=== PATIENT | male | born 1960 | race Caucasian/White ===

== ENCOUNTER 2021-04-06 13:36 | Emergency (ER) | payer OTHER ==
[2021-04-06 15:39] LABS: Bilirubin Neg (Negative); Blood, Urine 250 (Negative); Clarity Slightly Cloudy (Clear); Glucose, Urine (Dipstick) Normal (Negative); Ketone, Urine 15 mg/dL (Negative); Leukocyte 100 (Negative); Nitrite Negative (Negative); Protein, Urine (Dipstick) 100 mg/dl (Neg-Trace); Specific Gravity, Urine 1.015 (1.002-1.036)
[2021-04-06 15:44] LABS: Bacteria/HPF 2+ HPF (None Seen)
[2021-04-06] MEDS ORDERED: Ibuprofen 200 MG TAB ONE (15:47)
[2021-04-06] MEDS ORDERED: Acetaminophen 500 MG TAB ONE (15:47)
== END 2021-04-06 15:46 ==
LOC: CSHERS 13:36 → EEVIPCON 13:36 → CSHERS 15:46
DX: N45.2 Orchitis (principal); N40.1 Benign prostatic hyperplasia with lower urinary tract symptoms; N13.8 Other obstructive and reflux uropathy; N39.0 Urinary tract infection, site not specified; I11.0 Hypertensive heart disease with heart failure; I50.9 Heart failure, unspecified; I25.10 Atherosclerotic heart disease of native coronary artery without angina pectoris; E11.40 Type 2 diabetes mellitus with diabetic neuropathy, unspecified; E78.5 Hyperlipidemia, unspecified; I25.2 Old myocardial infarction; Z85.71 Personal history of Hodgkin lymphoma; G47.30 Sleep apnea, unspecified; Z79.4 Long term (current) use of insulin; Z79.82 Long term (current) use of aspirin; Z87.891 Personal history of nicotine dependence; Z79.899 Other long term (current) drug therapy
CPT/HCPCS: 76870; 81003; 81015; 87086; 93976

== ENCOUNTER 2021-04-12 13:36 | Emergency (ER) | payer OTHER ==
[2021-04-12 14:27] LABS: #Basophils 0.1 10x3/uL (0.0-0.2); #Eosinphils 0.1 10x3/uL (0.0-0.5); #Monocytes 0.7 10x3/uL (0.0-1.1); #Neutrophils 7.3 10x3/uL (1.5-8.4); %Basophils 0.6 % (0.0-2.0); %Lymphocytes 14.4 % (18.0-47.0); %Neutrophils 75.1 % (40.0-75.0); Hemoglobin 10.6 g/dL (13.5-17.5); Mean Corpuscular HGB CONC 30.8 g/dL (32.0-36.0); Mean Corpuscular Hemoglobin 24.9 pg (27.0-33.0); Mean Corpuscular Volume 80.9 fl (81.2-95.1); Mean Platelet Volume 10.6 fl (7.4-10.4); Platelet Count 321 10x3/uL (150-450); RBC Distribution Width 15.6 % (11.5-14.5); Red Blood Cell (RBC) Count 4.25 10x6/uL (4.32-5.72); White Blood Cell (WBC) Count 9.8 10x3/uL (3.5-10.5)
[2021-04-12] MEDS ORDERED: Piperacillin/Tazobactam 3.375 GM VIAL ONE (14:37)
[2021-04-12] MEDS ORDERED: Ondansetron PF 4 MG/2 ML Vial ONE (14:37)
[2021-04-12] MEDS ORDERED: Morphine 4 MG/ML VIAL ONE ×2 (14:37→18:31)
[2021-04-12 14:42] LABS: ALT (SGPT) 29 U/L (8-55); AST (SGOT) 22 U/L (5-34); Albumin 3.7 g/dL (3.4-4.8); Alkaline Phosphatase 120 U/L (40-110); Anion Gap 14 mmol/L (10-20); BUN (Urea Nitrogen) 11 mg/dL (8.4-25.7); Bilirubin, Total 0.5 mg/dL (0.2-1.2); CK (CPK) 72 U/L (30-200); Calc. Creatinine Clearance 0 mL/min (70-130); Calcium 9.3 mg/dL (7.8-10.44); Carbon Dioxide 30 mmol/L (23-31); Chloride 99 mmol/L (98-107); Globulin 3.6 g/dL (2.4-3.5); Glucose 226 mg/dL (80-115); Potassium 4.4 mmol/L (3.5-5.1); Protein, Total 7.3 g/dL (5.8-8.1); Sodium 139 mmol/L (136-145)
[2021-04-12 15:16] LABS: SARS-CoV-2 NAA Rapid Test Not Detected (NotDetected)
== END 2021-04-12 22:10 | disposition short-term general hospital (02) ==
LOC: EEVIPCON 13:36 → CSHERS 13:36
DX: N49.2 Inflammatory disorders of scrotum (principal); E11.40 Type 2 diabetes mellitus with diabetic neuropathy, unspecified; E78.5 Hyperlipidemia, unspecified; I11.0 Hypertensive heart disease with heart failure; I50.9 Heart failure, unspecified; I25.10 Atherosclerotic heart disease of native coronary artery without angina pectoris; I25.2 Old myocardial infarction; N40.0 Benign prostatic hyperplasia without lower urinary tract symptoms; Z87.891 Personal history of nicotine dependence; Z79.4 Long term (current) use of insulin; Z20.822 Contact with and (suspected) exposure to COVID-19
CPT/HCPCS: 72193; 80053; 82550; 83605; 85025; 86140; 87040; 96365; 96375; 96376; J2270; J2405; J2543; J3490; U0002

== ENCOUNTER 2021-09-23 21:59 | Inpatient (IN) | payer OTHER ==
[2021-09-23 22:25] LABS: #Eosinphils 0.1 10x3/uL (0.0-0.5); #Monocytes 0.7 10x3/uL (0.0-1.1); #Neutrophils 5.8 10x3/uL (1.5-8.4); %Basophils 0.5 % (0.0-2.0); %Eosinophils 0.7 % (0.0-6.0); %Lymphocytes 16.7 % (18.0-47.0); %Neutrophils 72.5 % (40.0-75.0); Hemoglobin 9.8 g/dL (13.5-17.5); Mean Corpuscular HGB CONC 32.5 g/dL (32.0-36.0); Mean Corpuscular Hemoglobin 25.1 pg (27.0-33.0); Mean Corpuscular Volume 77.4 fl (81.2-95.1); Mean Platelet Volume 10.5 fl (7.4-10.4); Platelet Count 231 10x3/uL (150-450); RBC Distribution Width 17.2 % (11.5-14.5)
[2021-09-23] MEDS ORDERED: Furosemide 100 MG/10 ML VIAL ONE (22:33)
[2021-09-23] MEDS ORDERED: Furosemide 40 MG/4 ML VIAL ONE (22:33)
[2021-09-23 22:36] LABS: ALT (SGPT) 24 U/L (8-55); AST (SGOT) 21 U/L (5-34); Albumin 3.9 g/dL (3.4-4.8); Alkaline Phosphatase 113 U/L (40-110); Anion Gap 13 mmol/L (10-20); BUN (Urea Nitrogen) 17 mg/dL (8.4-25.7); Bilirubin, Total 0.4 mg/dL (0.2-1.2); Calc. Creatinine Clearance 0 mL/min (70-130); Carbon Dioxide 26 mmol/L (23-31); Chloride 99 mmol/L (98-107); Estimated GFR 72; Globulin 2.6 g/dL (2.4-3.5); Glucose 230 mg/dL (80-115); Potassium 4.3 mmol/L (3.5-5.1); Protein, Total 6.5 g/dL (5.8-8.1); Sodium 134 mmol/L (136-145)
[2021-09-23 22:58] LABS: SARS-CoV-2 NAA Rapid Test Not Detected (NotDetected)
[2021-09-24] MEDS ORDERED: Nitroglycerin 0.4 MG TAB (25 Tab Bottle) SL PRN (03:16)
[2021-09-24] MEDS: Nitroglycerin 2% Ointment 1 INCH/1 GM Packet TOP SCH ×4 (03:57→22:44)
[2021-09-24 04:34] LABS: Troponin I 0.034 ng/mL (< 0.028)
[2021-09-24 04:49] LABS: Ferritin 48.6 ng/mL (22-322); Thyroid Stimulating Hormone 2.5574 uIU/mL (0.35-4.94)
[2021-09-24] MEDS: Furosemide 40 MG/4 ML VIAL SLOW IVP SCH ×2 (06:28→14:40)
[2021-09-24 08:14] LABS: #Eosinphils 0.1 10x3/uL (0.0-0.5); #Monocytes 0.8 10x3/uL (0.0-1.1); #Neutrophils 4.9 10x3/uL (1.5-8.4); %Basophils 0.6 % (0.0-2.0); %Eosinophils 1.5 % (0.0-6.0); %Lymphocytes 16.9 % (18.0-47.0); %Monocytes 10.8 % (0.0-10.0); %Neutrophils 69.5 % (40.0-75.0); Hemoglobin 10.2 g/dL (13.5-17.5); Mean Corpuscular HGB CONC 31.5 g/dL (32.0-36.0); Mean Corpuscular Hemoglobin 24.8 pg (27.0-33.0); Mean Corpuscular Volume 78.8 fl (81.2-95.1); Mean Platelet Volume 10.5 fl (7.4-10.4); Platelet Count 223 10x3/uL (150-450); RBC Distribution Width 17.1 % (11.5-14.5); Red Blood Cell (RBC) Count 4.11 10x6/uL (4.32-5.72); White Blood Cell (WBC) Count 7.1 10x3/uL (3.5-10.5)
[2021-09-24 08:29] LABS: Anion Gap 14 mmol/L (10-20); BUN (Urea Nitrogen) 17 mg/dL (8.4-25.7); Calc. Creatinine Clearance 142 mL/min (70-130); Calcium 9.4 mg/dL (7.8-10.44); Carbon Dioxide 26 mmol/L (23-31); Chloride 103 mmol/L (98-107); Estimated GFR 74; Glucose 173 mg/dL (80-115); Potassium 3.9 mmol/L (3.5-5.1); Sodium 139 mmol/L (136-145)
[2021-09-24] MEDS: DULoxetine 30 MG CAP PO SCH (09:16)
[2021-09-24] MEDS: Enoxaparin Sodium 40 MG/0.4 ML SYRINGE SC SCH (09:21)
[2021-09-24] MEDS: Clopidogrel Bisulfate 75 MG TAB PO SCH (09:21)
[2021-09-24] MEDS: Aspirin 81 mg Enteric Coated Tablet PO SCH (09:21)
[2021-09-24] MEDS: Empagliflozin 10 MG TAB PO SCH (09:21)
[2021-09-24] MEDS: hydrALAZINE 25 MG TAB PO SCH ×3 (09:22→21:52)
[2021-09-24] MEDS: Lisinopril 20 MG TAB PO SCH (09:22)
[2021-09-24] MEDS: Insulin Regular 300 UNITS/3 ML VIAL SC SCH ×3 (09:23→17:09)
[2021-09-24] MEDS: Carvedilol 6.25 MG TAB PO SCH ×2 (09:23→17:09)
[2021-09-24] MEDS: Potassium Chloride 20 MEQ TAB PO SCH (09:23)
[2021-09-24] MEDS: NPH, Human Insulin Isophane 300 UNIT/3 ML VIAL SC SCH ×2 (09:25→16:54)
[2021-09-24] MEDS: metFORMIN 500 MG TAB PO SCH ×2 (09:26→17:09)
[2021-09-24 11:02] LABS: Troponin I 0.029 ng/mL (< 0.028)
[2021-09-24] MEDS: Mometasone/Formoterol 60 PUFF AER INH SCH ×2 (12:01→19:55)
[2021-09-24] MEDS: Terazosin HCl 5 MG CAP PO SCH (21:51)
[2021-09-24] MEDS: Atorvastatin Calcium 40 MG TAB PO SCH (21:51)
[2021-09-24] MEDS: cefTRIAXone\\ROCEPHIN 2 GM in Sodium Chloride 0.9% 100 ML IVPB SCH (21:53)
[2021-09-25 04:43] LABS: Anion Gap 16 mmol/L (10-20); BUN (Urea Nitrogen) 22 mg/dL (8.4-25.7); Calc. Creatinine Clearance 139 mL/min (70-130); Calcium 8.9 mg/dL (7.8-10.44); Carbon Dioxide 26 mmol/L (23-31); Chloride 102 mmol/L (98-107); Estimated GFR 72; Glucose 94 mg/dL (80-115); Potassium 3.9 mmol/L (3.5-5.1); Sodium 140 mmol/L (136-145)
[2021-09-25] MEDS: Nitroglycerin 2% Ointment 1 INCH/1 GM Packet TOP SCH ×5 (04:45→22:19)
[2021-09-25 04:49] LABS: #Eosinphils 0.1 10x3/uL (0.0-0.5); #Monocytes 0.7 10x3/uL (0.0-1.1); #Neutrophils 4.8 10x3/uL (1.5-8.4); %Basophils 0.4 % (0.0-2.0); %Lymphocytes 19.7 % (18.0-47.0); %Monocytes 9.5 % (0.0-10.0); %Neutrophils 68.7 % (40.0-75.0); Hemoglobin 9.6 g/dL (13.5-17.5); Mean Corpuscular HGB CONC 32.3 g/dL (32.0-36.0); Mean Corpuscular Hemoglobin 25.5 pg (27.0-33.0); Mean Corpuscular Volume 78.8 fl (81.2-95.1); Mean Platelet Volume 10.6 fl (7.4-10.4); Platelet Count 214 10x3/uL (150-450); RBC Distribution Width 17.2 % (11.5-14.5); Red Blood Cell (RBC) Count 3.77 10x6/uL (4.32-5.72)
[2021-09-25] MEDS: Furosemide 40 MG/4 ML VIAL SLOW IVP SCH ×2 (05:35→17:55)
[2021-09-25] MEDS: Mometasone/Formoterol 60 PUFF AER INH SCH ×2 (07:55→18:40)
[2021-09-25] MEDS: Enoxaparin Sodium 40 MG/0.4 ML SYRINGE SC SCH (09:04)
[2021-09-25] MEDS: Empagliflozin 10 MG TAB PO SCH (09:05)
[2021-09-25] MEDS: Lisinopril 20 MG TAB PO SCH (09:06)
[2021-09-25] MEDS: hydrALAZINE 25 MG TAB PO SCH ×3 (09:06→20:01)
[2021-09-25] MEDS: Potassium Chloride 20 MEQ TAB PO SCH (09:07)
[2021-09-25] MEDS: metFORMIN 500 MG TAB PO SCH ×2 (09:07→17:54)
[2021-09-25] MEDS: DULoxetine 30 MG CAP PO SCH ×2 (09:07→17:55)
[2021-09-25] MEDS: Carvedilol 6.25 MG TAB PO SCH ×2 (09:07→17:54)
[2021-09-25] MEDS: Aspirin 81 mg Enteric Coated Tablet PO SCH (09:07)
[2021-09-25] MEDS: Clopidogrel Bisulfate 75 MG TAB PO SCH (09:07)
[2021-09-25] MEDS: NPH, Human Insulin Isophane 300 UNIT/3 ML VIAL SC SCH ×2 (09:12→18:06)
[2021-09-25] MEDS: Insulin Regular 300 UNITS/3 ML VIAL SC SCH ×3 (09:13→18:06)
[2021-09-25] MEDS: Amlodipine 5 MG TAB PO SCH (17:54)
[2021-09-25] MEDS: Terazosin HCl 5 MG CAP PO SCH (20:00)
[2021-09-25] MEDS: Atorvastatin Calcium 40 MG TAB PO SCH (20:00)
[2021-09-25 21:02] LABS: Hemoglobin A1c 9.7 % (4.0-6.0)
[2021-09-25] MEDS: cefTRIAXone\\ROCEPHIN 2 GM in Sodium Chloride 0.9% 100 ML IVPB SCH (22:19)
[2021-09-26] MEDS: Nitroglycerin 2% Ointment 1 INCH/1 GM Packet TOP SCH ×4 (05:00→22:23)
[2021-09-26] MEDS: Furosemide 40 MG/4 ML VIAL SLOW IVP SCH ×2 (05:16→13:04)
[2021-09-26 05:58] LABS: Anion Gap 15 mmol/L (10-20); BUN (Urea Nitrogen) 22 mg/dL (8.4-25.7); Calc. Creatinine Clearance 150 mL/min (70-130); Calcium 9.3 mg/dL (7.8-10.44); Carbon Dioxide 28 mmol/L (23-31); Chloride 103 mmol/L (98-107); Estimated GFR 83; Glucose 197 mg/dL (80-115); Magnesium 2.2 mg/dL (1.6-2.6); Potassium 4.3 mmol/L (3.5-5.1); Sodium 142 mmol/L (136-145)
[2021-09-26 06:01] LABS: #Eosinphils 0.1 10x3/uL (0.0-0.5); #Monocytes 0.6 10x3/uL (0.0-1.1); #Neutrophils 4.4 10x3/uL (1.5-8.4); %Basophils 0.5 % (0.0-2.0); %Eosinophils 1.9 % (0.0-6.0); %Lymphocytes 17.8 % (18.0-47.0); %Monocytes 8.9 % (0.0-10.0); %Neutrophils 70.4 % (40.0-75.0); Hemoglobin 9.8 g/dL (13.5-17.5); Mean Corpuscular HGB CONC 32.3 g/dL (32.0-36.0); Mean Corpuscular Hemoglobin 25.5 pg (27.0-33.0); Mean Corpuscular Volume 78.9 fl (81.2-95.1); Mean Platelet Volume 10.3 fl (7.4-10.4); Platelet Count 217 10x3/uL (150-450); RBC Distribution Width 17.1 % (11.5-14.5); Red Blood Cell (RBC) Count 3.84 10x6/uL (4.32-5.72); White Blood Cell (WBC) Count 6.3 10x3/uL (3.5-10.5)
[2021-09-26] MEDS: Mometasone/Formoterol 60 PUFF AER INH SCH ×2 (07:10→19:20)
[2021-09-26] MEDS: Enoxaparin Sodium 40 MG/0.4 ML SYRINGE SC SCH (08:49)
[2021-09-26] MEDS: Potassium Chloride 20 MEQ TAB PO SCH (08:50)
[2021-09-26] MEDS: Docusate 100 MG CAP PO SCH (08:50)
[2021-09-26] MEDS: Carvedilol 6.25 MG TAB PO SCH ×2 (08:50→16:11)
[2021-09-26] MEDS: Aspirin 81 mg Enteric Coated Tablet PO SCH (08:50)
[2021-09-26] MEDS: Lisinopril 20 MG TAB PO SCH (08:50)
[2021-09-26] MEDS: Clopidogrel Bisulfate 75 MG TAB PO SCH (08:50)
[2021-09-26] MEDS: metFORMIN 500 MG TAB PO SCH ×2 (08:51→16:11)
[2021-09-26] MEDS: DULoxetine 30 MG CAP PO SCH ×3 (08:51→16:10)
[2021-09-26] MEDS: hydrALAZINE 25 MG TAB PO SCH ×3 (08:51→20:59)
[2021-09-26] MEDS ORDERED: Dextrose 50% Abboject 50 ML SYRINGE SLOW IVP PRN (10:58)
[2021-09-26] MEDS ORDERED: Dextrose 5% in Water 1,000 ML IV PRN (10:58)
[2021-09-26] MEDS: HumaLOG 300 UNITS/3 ML VIAL SC PRN ×3 (11:44→21:08)
[2021-09-26] MEDS: Amlodipine 5 MG TAB PO SCH (16:11)
[2021-09-26] MEDS: Terazosin HCl 5 MG CAP PO SCH (21:00)
[2021-09-26] MEDS: Atorvastatin Calcium 40 MG TAB PO SCH (21:00)
[2021-09-26] MEDS: cefTRIAXone\\ROCEPHIN 2 GM in Sodium Chloride 0.9% 100 ML IVPB SCH (21:01)
[2021-09-27] MEDS: Nitroglycerin 2% Ointment 1 INCH/1 GM Packet TOP SCH ×3 (05:06→15:08)
[2021-09-27 05:39] LABS: #Eosinphils 0.1 10x3/uL (0.0-0.5); #Monocytes 0.5 10x3/uL (0.0-1.1); %Basophils 0.5 % (0.0-2.0); %Eosinophils 2.3 % (0.0-6.0); %Lymphocytes 23.1 % (18.0-47.0); %Monocytes 8.8 % (0.0-10.0); %Neutrophils 64.8 % (40.0-75.0); Hemoglobin 9.8 g/dL (13.5-17.5); Mean Corpuscular HGB CONC 31.5 g/dL (32.0-36.0); Mean Corpuscular Hemoglobin 24.7 pg (27.0-33.0); Mean Corpuscular Volume 78.5 fl (81.2-95.1); Mean Platelet Volume 10.4 fl (7.4-10.4); Platelet Count 235 10x3/uL (150-450); RBC Distribution Width 17.2 % (11.5-14.5); Red Blood Cell (RBC) Count 3.96 10x6/uL (4.32-5.72); White Blood Cell (WBC) Count 6.2 10x3/uL (3.5-10.5)
[2021-09-27 05:54] LABS: Anion Gap 14 mmol/L (10-20); BUN (Urea Nitrogen) 23 mg/dL (8.4-25.7); Calc. Creatinine Clearance 157 mL/min (70-130); Calcium 9.2 mg/dL (7.8-10.44); Carbon Dioxide 31 mmol/L (23-31); Chloride 102 mmol/L (98-107); Estimated GFR 88; Glucose 211 mg/dL (80-115); Magnesium 2.3 mg/dL (1.6-2.6); Sodium 143 mmol/L (136-145)
[2021-09-27] MEDS: Mometasone/Formoterol 60 PUFF AER INH SCH ×2 (07:20→19:20)
[2021-09-27] MEDS: Furosemide 40 MG/4 ML VIAL SLOW IVP SCH ×2 (07:26→15:21)
[2021-09-27] MEDS: HumaLOG 300 UNITS/3 ML VIAL SC PRN ×4 (07:27→21:16)
[2021-09-27] MEDS: Carvedilol 6.25 MG TAB PO SCH ×2 (08:27→17:55)
[2021-09-27] MEDS: Lisinopril 20 MG TAB PO SCH (08:27)
[2021-09-27] MEDS: Docusate 100 MG CAP PO SCH (08:27)
[2021-09-27] MEDS: Aspirin 81 mg Enteric Coated Tablet PO SCH (08:27)
[2021-09-27] MEDS: DULoxetine 30 MG CAP PO SCH ×3 (08:27→17:42)
[2021-09-27] MEDS: Clopidogrel Bisulfate 75 MG TAB PO SCH (08:28)
[2021-09-27] MEDS: hydrALAZINE 25 MG TAB PO SCH ×3 (08:28→21:15)
[2021-09-27] MEDS: metFORMIN 500 MG TAB PO SCH ×2 (08:28→17:42)
[2021-09-27] MEDS: Potassium Chloride 20 MEQ TAB PO SCH (08:29)
[2021-09-27] MEDS: Enoxaparin Sodium 40 MG/0.4 ML SYRINGE SC SCH (08:29)
[2021-09-27 12:32] VITALS: BMI 36.8
[2021-09-27] MEDS: Amlodipine 5 MG TAB PO SCH (15:22)
[2021-09-27] MEDS ORDERED: Carvedilol 25 MG TAB PO SCH (18:00)
[2021-09-27] MEDS: Terazosin HCl 5 MG CAP PO SCH (21:14)
[2021-09-27] MEDS: Amoxicillin/Potassium Clav 875 MG TAB PO SCH (21:15)
[2021-09-27] MEDS: Atorvastatin Calcium 40 MG TAB PO SCH (21:15)
[2021-09-27] MEDS: NPH, Human Insulin Isophane 300 UNIT/3 ML VIAL SC SCH (21:17)
[2021-09-28 05:37] LABS: #Eosinphils 0.2 10x3/uL (0.0-0.5); #Monocytes 0.6 10x3/uL (0.0-1.1); #Neutrophils 4.1 10x3/uL (1.5-8.4); %Basophils 0.5 % (0.0-2.0); %Eosinophils 2.6 % (0.0-6.0); %Monocytes 9.5 % (0.0-10.0); %Neutrophils 66.9 % (40.0-75.0); Hemoglobin 10.2 g/dL (13.5-17.5); Mean Corpuscular HGB CONC 31.5 g/dL (32.0-36.0); Mean Corpuscular Hemoglobin 24.6 pg (27.0-33.0); Mean Corpuscular Volume 78.1 fl (81.2-95.1); Platelet Count 222 10x3/uL (150-450); RBC Distribution Width 17.2 % (11.5-14.5); Red Blood Cell (RBC) Count 4.15 10x6/uL (4.32-5.72); White Blood Cell (WBC) Count 6.1 10x3/uL (3.5-10.5)
[2021-09-28 05:41] LABS: Anion Gap 16 mmol/L (10-20); BUN (Urea Nitrogen) 23 mg/dL (8.4-25.7); Calc. Creatinine Clearance 149 mL/min (70-130); Calcium 9.5 mg/dL (7.8-10.44); Carbon Dioxide 30 mmol/L (23-31); Chloride 101 mmol/L (98-107); Estimated GFR 85; Glucose 158 mg/dL (80-115); Magnesium 2.2 mg/dL (1.6-2.6); Potassium 3.8 mmol/L (3.5-5.1); Sodium 143 mmol/L (136-145)
[2021-09-28] MEDS: HumaLOG 300 UNITS/3 ML VIAL SC PRN ×4 (06:42→20:22)
[2021-09-28] MEDS: Mometasone/Formoterol 60 PUFF AER INH SCH ×2 (07:00→19:15)
[2021-09-28] MEDS ORDERED: Carvedilol 25 MG TAB PO SCH ×2 (08:00→17:00)
[2021-09-28] MEDS ORDERED: Potassium Chloride 20 MEQ TAB PO SCH (08:00)
[2021-09-28] MEDS: Clopidogrel Bisulfate 75 MG TAB PO SCH (08:55)
[2021-09-28] MEDS: Aspirin 81 mg Enteric Coated Tablet PO SCH (08:55)
[2021-09-28] MEDS: Carvedilol 25 MG TAB PO SCH ×2 (08:56→16:01)
[2021-09-28] MEDS: Amoxicillin/Potassium Clav 875 MG TAB PO SCH ×2 (08:56→20:10)
[2021-09-28] MEDS: hydrALAZINE 25 MG TAB PO SCH ×3 (08:56→20:10)
[2021-09-28] MEDS: Potassium Chloride 20 MEQ TAB PO SCH (08:56)
[2021-09-28] MEDS: Lisinopril 20 MG TAB PO SCH (08:57)
[2021-09-28] MEDS: DULoxetine 30 MG CAP PO SCH ×3 (08:57→17:54)
[2021-09-28] MEDS: metFORMIN 500 MG TAB PO SCH ×2 (08:57→16:00)
[2021-09-28] MEDS: Docusate 100 MG CAP PO SCH (08:57)
[2021-09-28] MEDS: Furosemide 40 MG TAB PO SCH ×2 (08:57→13:18)
[2021-09-28] MEDS: Enoxaparin Sodium 40 MG/0.4 ML SYRINGE SC SCH (09:02)
[2021-09-28] MEDS: NPH, Human Insulin Isophane 300 UNIT/3 ML VIAL SC SCH ×2 (09:04→20:11)
[2021-09-28] MEDS ORDERED: Furosemide 40 MG/4 ML VIAL SLOW IVP SCH (14:45)
[2021-09-28] MEDS: Amlodipine 5 MG TAB PO SCH (16:01)
[2021-09-28] MEDS: Terazosin HCl 5 MG CAP PO SCH (20:11)
[2021-09-28] MEDS: Atorvastatin Calcium 40 MG TAB PO SCH (20:11)
[2021-09-28 20:13] VITALS: BP 152/77
[2021-09-28 21:37] VITALS: TEMP 98.2
[2021-09-29] MEDS ORDERED: Furosemide 20 MG TAB PO SCH (09:00)
== END 2021-09-28 22:55 | DRG 291 ==
LOC: CSHERS 21:59 → EEVIPCON 21:59 → CSHTELE 09-24 03:38
PROVIDERS: ADMIT Family Medicine; ATTEND Family Medicine
PROC: 5A09357 Assistance with Respiratory Ventilation, Less than 24 Consecutive Hours, Continuous Positive Airway Pressure (ICD-10-PCS; principal; 2021-09-24)
DX: I13.0 Hypertensive heart and chronic kidney disease with heart failure and stage 1 through stage 4 chronic kidney disease, or unspecified chronic kidney disease (principal); J96.01 Acute respiratory failure with hypoxia; I50.33 Acute on chronic diastolic (congestive) heart failure; I16.1 Hypertensive emergency; L03.116 Cellulitis of left lower limb; Z20.822 Contact with and (suspected) exposure to COVID-19; I25.10 Atherosclerotic heart disease of native coronary artery without angina pectoris; E66.01 Morbid (severe) obesity due to excess calories; E11.42 Type 2 diabetes mellitus with diabetic polyneuropathy; J44.9 Chronic obstructive pulmonary disease, unspecified; N40.0 Benign prostatic hyperplasia without lower urinary tract symptoms; I87.2 Venous insufficiency (chronic) (peripheral); T87.89 Other complications of amputation stump; Y84.8 Other medical procedures as the cause of abnormal reaction of the patient, or of later complication, without mention of misadventure at the time of the procedure; N18.2 Chronic kidney disease, stage 2 (mild); D63.1 Anemia in chronic kidney disease; E78.5 Hyperlipidemia, unspecified; D50.9 Iron deficiency anemia, unspecified; I25.2 Old myocardial infarction; Z79.4 Long term (current) use of insulin; Z95.1 Presence of aortocoronary bypass graft; Z79.82 Long term (current) use of aspirin; Z79.84 Long term (current) use of oral hypoglycemic drugs; Z79.899 Other long term (current) drug therapy; Z82.49 Family history of ischemic heart disease and other diseases of the circulatory system; Z68.35 Body mass index [BMI] 35.0-35.9, adult; Z85.71 Personal history of Hodgkin lymphoma
CPT/HCPCS: 36415; 36416; 71045; 80048; 80053; 82607; 82728; 83036; 83735; 83880; 84443; 84484; 85025; 86140; 93005; 93010; 93306; 93970; 94640; 94660; 94664; 94760; 96374; 97139; J0696; J1650; J1815; J1940; J3490; J7620; U0002

== ENCOUNTER → 2022-02-23 | Emergency (ER) | payer OTHER ==
[~2022-02-23] MED LIST: Furosemide 40 MG/4 ML VIAL ONE
[2022-02-23 22:11] LABS: #Eosinphils 0.1 10x3/uL (0.0-0.5); #Monocytes 0.5 10x3/uL (0.0-1.1); #Neutrophils 5.2 10x3/uL (1.5-8.4); %Basophils 0.4 % (0.0-2.0); %Eosinophils 1.6 % (0.0-6.0); %Monocytes 7.3 % (0.0-10.0); Hemoglobin 9.2 g/dL (13.5-17.5); Mean Corpuscular HGB CONC 33.6 g/dL (32.0-36.0); Mean Corpuscular Hemoglobin 27.4 pg (27.0-33.0); Mean Corpuscular Volume 81.5 fl (81.2-95.1); Mean Platelet Volume 10.4 fl (7.4-10.4); Platelet Count 246 10x3/uL (150-450); RBC Distribution Width 17.8 % (11.5-14.5); Red Blood Cell (RBC) Count 3.36 10x6/uL (4.32-5.72)
[2022-02-23 22:24] LABS: ALT (SGPT) 18 U/L (8-55); AST (SGOT) 12 U/L (5-34); Albumin 3.9 g/dL (3.4-4.8); Alkaline Phosphatase 114 U/L (40-110); Anion Gap 14 mmol/L (10-20); BUN (Urea Nitrogen) 21 mg/dL (8.4-25.7); Bilirubin, Total 0.5 mg/dL (0.2-1.2); Calc. Creatinine Clearance 0 mL/min (70-130); Calcium 8.8 mg/dL (7.8-10.44); Carbon Dioxide 23 mmol/L (23-31); Chloride 104 mmol/L (98-107); Estimated GFR 82; Globulin 2.8 g/dL (2.4-3.5); Glucose 198 mg/dL (80-115); Lipase 16 U/L (8-78); PTT 25.1 sec (22.0-33.0); Protein, Total 6.7 g/dL (5.8-8.1); Prothrombin Time 10.6 sec (9.5-12.1); Sodium 137 mmol/L (136-145)
[2022-02-23 22:38] LABS: SARS-CoV-2 NAA Rapid Test Not Detected (NotDetected)
[2022-02-23 23:08] LABS: Bilirubin Neg (Negative); Blood, Urine Negative (Negative); Clarity Clear (Clear); Glucose, Urine (Dipstick) Normal (Negative); Ketone, Urine Negative (Negative); Leukocyte 500 (Negative); Nitrite Negative (Negative); Protein, Urine (Dipstick) 15 mg/dl (Neg-Trace); Specific Gravity, Urine 1.015 (1.005-1.030)
[2022-02-23 23:14] LABS: Bacteria/HPF 1+ HPF (None Seen); RBC/HPF 0-3 HPF (0-3); Squamous Epithelial 0-3 HPF (0-3); WBC/HPF 21-50 HPF (0-3)
== END ==
LOC: CSHERS 21:39
DX: J96.00 Acute respiratory failure, unspecified whether with hypoxia or hypercapnia (principal); Z20.822 Contact with and (suspected) exposure to COVID-19; E11.40 Type 2 diabetes mellitus with diabetic neuropathy, unspecified; Z79.4 Long term (current) use of insulin; I11.0 Hypertensive heart disease with heart failure; I50.9 Heart failure, unspecified; E78.5 Hyperlipidemia, unspecified; J44.9 Chronic obstructive pulmonary disease, unspecified; I25.10 Atherosclerotic heart disease of native coronary artery without angina pectoris; Z87.891 Personal history of nicotine dependence
CPT/HCPCS: 36415; 71045; 80053; 81003; 81015; 83605; 83690; 83880; 84484; 85025; 85610; 85730; 87040; 87077; 87086; 87186; 93005; 94660; 96374; 96375; J1940; J1956